=== PATIENT | male | born 1945 | race Caucasian/White ===

== ENCOUNTER → 2020-07-13 10:25 | Outpatient (CLI) | payer MEDICARE, SELFPAY ==
[2020-07-13 19:41] LABS: Add Manual Diff / Slide Review NO; Basophils Absolute Auto 0 /uL (0-100); Basophils Percent Auto 0.3 % (0-2); Eosinophils Absolute Auto 200 /uL (0-450); Eosinophils Percent Auto 3.6 % (2-4); Hematocrit 42.3 % (41-53); Hemoglobin 13.7 g/dL (13.5-17.5); Lymphocytes Absolute Auto 1200 /uL (1100-4500); Lymphocytes Percent Auto 25.6 % (25-40); Mean Corpuscular HGB Conc 32.5 % (30-36); Mean Corpuscular Hemoglobin 28.8 PG (26-34); Mean Corpuscular Volume 88.4 fL (80-100); Monocytes Absolute Auto 700 /uL (0-900); Monocytes Percent Auto 13.7 % (3-14); Neutrophils Absolute Auto 2800 /uL (1500-7000); Neutrophils Percent Auto 56.8 % (50-75); Platelet Count 265 X10^3/uL (150-400); Red Blood Cell Count 4.78 X10^6/uL (4.5-5.9); Red Cell Distribution Width 14.2 % (11.6-14.8); White Blood Cell Count 4.9 X10^3/uL (4.5-11.0)
[2020-07-13 19:45] LABS: HEMOLYSIS < 15 (0-50)
[2020-07-13 19:50] LABS: Alanine Aminotransferase 25 IU/L (<50); Albumin 3.9 g/dL (3.5-5.0); Albumin Globulin Ratio 1.5 (1.0-2.8); Alkaline Phosphatase 86 U/L (38-126); Aspartate Aminotransferase 36 IU/L (17-59); BUN Creatinine Ratio 15.5 (6-22); Bilirubin Total 0.7 mg/dL (0.2-1.3); Blood Urea Nitrogen 11 mg/dL (9-20); Calcium 9.4 mg/dL (8.4-10.2); Carbon Dioxide 28 mmol/L (22-32); Chloride 108 mmol/L (98-107); Cholesterol 166 mg/dL (140-199); Estimated Glomerular Filt Rate > 60.0 mL/min (>60); Globulin 2.6 g/dL (1.7-4.1); Glucose 110 mg/dL (80-110); HDL Cholesterol 48 mg/dL (40-60); LDL Cholesterol Calculated 103 mg/dL (<100); Potassium 4.4 mmol/L (3.4-5.1); Sodium 141 mmol/L (137-145); Total Protein 6.5 g/dL (6.3-8.2); Triglycerides 75 mg/dL (35-150)
[2020-07-15 04:03] LABS: Prostate Specific Antigen Scrn 4.98 ng/mL (0.1-4.0)
== END ==
PROVIDERS: Family Provider Internal Medicine; PCP Internal Medicine; Visit Provider Family Medicine
DX: E66.9 Obesity, unspecified (principal); Z12.5 Encounter for screening for malignant neoplasm of prostate; Z85.47 Personal history of malignant neoplasm of testis; I82.409 Acute embolism and thrombosis of unspecified deep veins of unspecified lower extremity; N52.9 Male erectile dysfunction, unspecified; R97.20 Elevated prostate specific antigen [PSA]
CPT/HCPCS: 80053; 80061; 85025; G0103

== ENCOUNTER → 2021-09-19 11:22 | Outpatient (CLI) | payer MEDICARE, SELFPAY ==
[2021-09-19 20:34] LABS: Alanine Aminotransferase 15 IU/L (<50); Albumin Globulin Ratio 1.6 (1.0-2.8); Alkaline Phosphatase 65 U/L (38-126); Aspartate Aminotransferase 24 IU/L (17-59); BUN Creatinine Ratio 15.6 (6-22); Bilirubin Total 0.9 mg/dL (0.2-1.3); Blood Urea Nitrogen 10 mg/dL (9-20); Calcium 8.7 mg/dL (8.4-10.2); Carbon Dioxide 29 mmol/L (22-32); Chloride 104 mmol/L (98-107); Estimated Glomerular Filt Rate > 60 mL/min (>60); Globulin 2.5 g/dL (1.7-4.1); Glucose 89 mg/dL (80-110); HEMOLYSIS < 15 (0-50); Potassium 4.7 mmol/L (3.4-5.1); Sodium 137 mmol/L (137-145); Total Protein 6.5 g/dL (6.3-8.2)
[2021-09-21 09:05] LABS: PSA Free % 16.9 % (.); PSA, Total 7.7 ng/mL (0.0-4.0)
== END ==
PROVIDERS: Family Provider Internal Medicine; PCP Family Medicine; Visit Provider Family Medicine
DX: I82.409 Acute embolism and thrombosis of unspecified deep veins of unspecified lower extremity (principal)
CPT/HCPCS: 80053; 84153; 84154

== ENCOUNTER → 2022-04-06 11:48 | Outpatient (CLI) | payer OTHER, SELFPAY ==
[2022-04-06 13:23] LABS: Add Manual Diff / Slide Review NO; Basophils Absolute Auto 0 /uL (0-100); Basophils Percent Auto 0.3 % (0-2); Eosinophils Absolute Auto 100 /uL (0-450); Eosinophils Percent Auto 1.9 % (2-4); Hematocrit 38.9 % (41-53); Hemoglobin 13.2 g/dL (13.5-17.5); Lymphocytes Absolute Auto 1300 /uL (1100-4500); Lymphocytes Percent Auto 23.6 % (25-40); Mean Corpuscular HGB Conc 33.9 % (30-36); Mean Corpuscular Hemoglobin 30.2 PG (26-34); Mean Corpuscular Volume 89.1 fL (80-100); Monocytes Absolute Auto 600 /uL (0-900); Monocytes Percent Auto 10.1 % (3-14); Neutrophils Absolute Auto 3500 /uL (1500-7000); Neutrophils Percent Auto 64.1 % (50-75); Platelet Count 260 X10^3/uL (150-400); Red Blood Cell Count 4.37 X10^6/uL (4.5-5.9); Red Cell Distribution Width 13.6 % (11.6-14.8); White Blood Cell Count 5.5 X10^3/uL (4.5-11.0)
[2022-04-06 13:44] LABS: Fibrinogen 252 mg/dL (211-428)
[2022-04-06 13:46] LABS: D Dimer 754 ng/ml (<500)
[2022-04-06 14:13] LABS: Testosterone 990 ng/dL (71.8-623)
[2022-04-08 13:34] LABS: Factor VIII Activity, Clotting 141 % (56-140); Protein C-Functional 103 % (73-180)
[2022-04-10 17:08] LABS: APTT 26.5 sec (.); Factor V Activity 93 % (.); Prothrombin Time 10.6 sec (.)
[2022-04-17 06:36] LABS: Percent Free Testosterone 1.44 % (1.50-4.20); Testosterone Total 694.6 ng/dL (264.0-916.0)
== END ==
PROVIDERS: Family Provider Internal Medicine; PCP Family Medicine; Referring Provider Urology; Visit Provider Urology
DX: I82.4Z2 Acute embolism and thrombosis of unspecified deep veins of left distal lower extremity (principal); N40.1 Benign prostatic hyperplasia with lower urinary tract symptoms; N13.8 Other obstructive and reflux uropathy; R97.20 Elevated prostate specific antigen [PSA]; N52.9 Male erectile dysfunction, unspecified; Z85.47 Personal history of malignant neoplasm of testis; Z90.79 Acquired absence of other genital organ(s); Z79.01 Long term (current) use of anticoagulants; Z79.890 Hormone replacement therapy
CPT/HCPCS: 36415; 51798; 81002; 84402; 84403; 85025; 85220; 85240; 85303; 85379; 85384; 85610; 85611; 85730; 99214

== ENCOUNTER → 2022-04-14 10:40 | Outpatient (CLI) | payer OTHER, SELFPAY ==
--- NOTE | 2022-04-14 10:41 | DI.MRI.S_ITS ---
PROCEDURE: MR PELVIC PROSTATE PROTOCOL INDICATIONS: Elevated PSA TECHNIQUE: Coronal HASTE, axial T1 FSE with fat saturation, 3-plane nonbreath-hold T2 FSE. After the administration of contrast, dynamic axial, delayed axial and coronal VIBE or 2-D FLASH with fat saturation through the pelvis. Optional diffusion weighted imaging and ADC may be performed. COMPARISON: None. FINDINGS: Image quality: Diffusion weighted images are degraded by metallic artifact. Prostate: Gland size is 5.6 x 9.1 x 7.0 cm; ellipsoid gland volume is 185 mL. Lesion 1: Location: Midline transition zone, base (06/29) Size: 3.9 x 2.8 cm T2 signal: Markedly T2 hypointense DWI: Degraded by metallic artifact ADC: Markedly hypointense Enhancement: Positive Extracapsular extension: No PI-RADS score: 5 Lesion 2: Location: Midline posterior left transition zone, midgland (07/08) Size: 1.4 x 1.0 cm T2 signal: Partially calcified nodule with hypointense signal DWI: Degraded by metallic artifact ADC: Markedly hypointense Enhancement: Positive Extracapsular extension: No PI-RADS score: 3 Lesion 3: Location: Left posterior transition zone, midgland (07/08) Size: 1.0 x 1.0 cm T2 signal: Partially calcified nodule with hypointense signal DWI: Degraded by metallic artifact ADC: Markedly hypointense Enhancement: Positive Extracapsular extension: No PI-RADS score: 3 Genitourinary system: Bladder wall thickness is normal. Distal ureters are non distended. Bowel and peritoneum: No pathologic free pelvic fluid. Inferior colon and small bowel loops are normal in caliber. Nodes and vessels: Enlarged right obturator chain node measuring 1.2 cm short axis (5/3). Enlarged left external iliac chain node measuring 1.2 cm short axis (5/11). Soft tissues: Left inguinal hernia containing fat. Bones: Marrow demonstrates normal overall signal, without lesions to suggest metastases. Bilateral hip arthroplasties. IMPRESSION: PI-RADS 3 and 5 lesions, as above. Enlarged pelvic chain lymph nodes by size criteria. Dictated by: Mil King M.D. on 04/14/2022 at 12:15 Approved by: Mil King M.D. on 04/14/2022 at 12:31
== END ==
PROVIDERS: Family Provider Internal Medicine; PCP Family Medicine; Referring Provider Urology; Visit Provider Urology
DX: R97.20 Elevated prostate specific antigen [PSA] (principal); N42.9 Disorder of prostate, unspecified; R59.0 Localized enlarged lymph nodes
CPT/HCPCS: 72197

== ENCOUNTER → 2022-05-03 14:00 | Outpatient (CLI) | payer OTHER, SELFPAY ==
[2022-05-03 19:10] LABS: Add Manual Diff / Slide Review NO; Basophils Absolute Auto 0 /uL (0-100); Basophils Percent Auto 0.4 % (0-2); Eosinophils Absolute Auto 100 /uL (0-450); Eosinophils Percent Auto 2.9 % (2-4); Hematocrit 39.7 % (41-53); Hemoglobin 13.5 g/dL (13.5-17.5); Lymphocytes Absolute Auto 1500 /uL (1100-4500); Lymphocytes Percent Auto 34.9 % (25-40); Mean Corpuscular Hemoglobin 30.1 PG (26-34); Mean Corpuscular Volume 88.7 fL (80-100); Monocytes Absolute Auto 500 /uL (0-900); Monocytes Percent Auto 11.8 % (3-14); Neutrophils Absolute Auto 2200 /uL (1500-7000); Platelet Count 258 X10^3/uL (150-400); Red Blood Cell Count 4.48 X10^6/uL (4.5-5.9); Red Cell Distribution Width 13.7 % (11.6-14.8); White Blood Cell Count 4.4 X10^3/uL (4.5-11.0)
[2022-05-03 19:19] LABS: HEMOLYSIS < 15 (0-50)
[2022-05-03 19:34] LABS: Alanine Aminotransferase 22 IU/L (<50); Albumin 3.8 g/dL (3.5-5.0); Albumin Globulin Ratio 1.4 (1.0-2.8); Alkaline Phosphatase 65 U/L (38-126); Aspartate Aminotransferase 27 IU/L (17-59); BUN Creatinine Ratio 16.9 (6-22); Bilirubin Total 0.7 mg/dL (0.2-1.3); Blood Urea Nitrogen 10 mg/dL (9-20); Calcium 8.9 mg/dL (8.4-10.2); Carbon Dioxide 31 mmol/L (22-32); Chloride 102 mmol/L (98-107); Estimated Glomerular Filt Rate > 60 mL/min (>60); Globulin 2.7 g/dL (1.7-4.1); Glucose 120 mg/dL (80-110); Potassium 4.2 mmol/L (3.4-5.1); Sodium 139 mmol/L (137-145); Total Protein 6.5 g/dL (6.3-8.2)
[2022-05-05 09:53] LABS: Prostate Specific Antigen Scrn 5.42 ng/mL (0.1-4.0)
[2022-05-15 10:07] LABS: Percent Free Testosterone 1.25 % (1.50-4.20); Testosterone Total 127.8 ng/dL (264.0-916.0)
== END ==
PROVIDERS: Family Provider Internal Medicine; PCP Family Medicine; Visit Provider Family Medicine
DX: R79.89 Other specified abnormal findings of blood chemistry (principal); N13.8 Other obstructive and reflux uropathy; N40.1 Benign prostatic hyperplasia with lower urinary tract symptoms; Z79.890 Hormone replacement therapy; Z85.47 Personal history of malignant neoplasm of testis; Z12.5 Encounter for screening for malignant neoplasm of prostate
CPT/HCPCS: 80053; 84402; 84403; 85025; G0103

== ENCOUNTER → 2022-07-28 10:43 | Outpatient (CLI) | payer OTHER, SELFPAY ==
--- NOTE | 2022-07-28 10:44 | DI.MRI.S_ITS ---
PROCEDURE: MR SHOULDER RT WO CON INDICATIONS: fall on shoulder 1 week ago, cannot lift arm TECHNIQUE: Noncontrast oblique coronal T2 fast spin echo with fat saturation, oblique sagittal T1 spin echo and T2 fast spin echo with fat saturation, axial T1 spin echo and T2 fast spin echo with fat saturation through the shoulder. COMPARISON: [facility] ([place]), CR, XR SHOULDER RT MIN 2V, 05/24/2022, 11:27. FINDINGS: Image quality: Excellent. Rotator cuff: There is full-thickness tearing of the supraspinatus tendon and the anterior portion of the infraspinatus tendon measuring approximately 2.4 cm at the distal insertion. There is proximal tendon retraction measuring up to 5.6 cm. Mild atrophy and grade 2 fatty infiltration of the supraspinatus and infraspinatus muscles. Mildly [id number] material is seen posterior to the humeral head that appears to be continuous with the retracted infraspinatus tendon and could represent osseous avulsion fragments. These are not well seen on T1-weighted images, likely due to internal edema. Intramuscular edema within the medial infraspinatus muscle is consistent with a superimposed strain. Mild teres minor tendinosis. Moderate tendinosis of the distal subscapularis tendon. A benign muscular lipoma is seen along the deep margin of the lateral belly of the deltoid muscle measuring 5.0 x 1.8 x 6.1 cm. Bones and bursae: Minimal osseous edema at the greater tuberosity. Chronic traction cystic changes are seen at the posterosuperior head humeral head as well as the greater and lesser tuberosities near the rotator cuff tendon insertions. The humeral head is high riding with narrowing of the acromiohumeral interval. High-grade cartilage loss is seen in the glenoid and medial humeral head with subchondral cystic changes and marginal osteophyte formation. Moderate to severe degenerative changes are seen at the acromioclavicular joint. A moderate subacromial/subdeltoid bursal effusion communicates with the glenohumeral joint space an with a large subcoracoid effusion. Fluid can be seen tracking medially from the superior subscapularis recess. Capsule and soft tissues: Diffuse labral degeneration and chronic degenerative tearing. The proximal biceps long head tendon is not seen, most likely due to complete tearing and distal retraction. Glenohumeral ligaments are grossly intact. IMPRESSION: 1. Full-thickness tearing of the supraspinatus tendon and the anterior portion of the infraspinatus tendon from their distal footprints measuring approximately 2.4 cm in anterior-posterior dimension with proximal tendon retraction measuring up to 5.6 cm. Mild atrophy and fatty infiltration of the supraspinatus and infraspinatus muscles. Intramuscular edema within the infraspinatus muscle is consistent with a superimposed low-grade strain. 2. Mildly edematous structures located posterior to the humeral head that appear to be continuous with the retracted infraspinatus tendon are suspicious for displaced osseous avulsion fragments. There is trace edema at the suspected donor site at the greater tuberosity. 3. Moderate subscapularis tendinosis and mild teres minor tendinosis. 4. Complete tearing distal retraction of the biceps long head tendon. 5. 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 Diffuse labral degeneration and chronic degenerative tearing. 6. Moderate to severe acromioclavicular joint osteoarthrosis. 7. Moderate subacromial/subdeltoid bursal fluid communicates with a large subcoracoid bursal effusion and with the glenohumeral joint space. Nonspecific fluid is noted tracking medially from the superior subscapularis recess. 8. Incidental benign intramuscular lipoma within the lateral belly of the deltoid muscle. Approved by: Collin Petty M.D. on 07/28/2022 at 11:56
== END ==
PROVIDERS: Family Provider Internal Medicine; PCP Family Medicine; Referring Provider Physician Assistant; Visit Provider Physician Assistant
DX: S46.011A Strain of muscle(s) and tendon(s) of the rotator cuff of right shoulder, initial encounter (principal); S46.111A Strain of muscle, fascia and tendon of long head of biceps, right arm, initial encounter; M94.211 Chondromalacia, right shoulder; M19.011 Primary osteoarthritis, right shoulder; D17.9 Benign lipomatous neoplasm, unspecified; M25.411 Effusion, right shoulder
CPT/HCPCS: 73221

== ENCOUNTER → 2023-01-22 15:03 | Outpatient (CLI) | payer OTHER, SELFPAY ==
--- NOTE | 2023-01-22 15:05 | DI.RAD.S_ITS ---
PROCEDURE: XR KNEE LT 3V INDICATIONS: Possible L TKR TECHNIQUE: 3 views of the knee were acquired. COMPARISON: [facility], CR, XR KNEE ARTHRITIC SERIES LT, 03/02/2021, 13:59. [facility]), CR, XR KNEE LT 3V, 08/17/2020, 10:30. FINDINGS: Bones: No fractures or dislocations. No suspicious bony lesions. Severe tricompartmental knee joint degeneration. Soft tissues: Small joint effusion. No suspicious soft tissue calcifications. IMPRESSION: 1. Severe osteoarthritis. 2. Small knee joint effusion. Dictated by: Chayito Bay M.D. on 01/22/2023 at 16:04 Approved by: Chayito Bay M.D. on 01/22/2023 at 16:06
== END ==
PROVIDERS: Family Provider Internal Medicine; PCP Family Medicine; Referring Provider Family Medicine; Visit Provider Family Medicine
DX: M25.462 Effusion, left knee (principal); M17.12 Unilateral primary osteoarthritis, left knee; M25.569 Pain in unspecified knee
CPT/HCPCS: 73562

== ENCOUNTER → 2023-05-01 10:02 | Outpatient (CLI) | payer OTHER, SELFPAY ==
--- NOTE | 2023-05-01 10:03 | DI.US.S_ITS ---
PROCEDURE: US PERIPH VENOUS LOW EXTREM LT INDICATIONS: SWELLING. H/O DVT ?DVT VS HESS'S CYST TECHNIQUE: Real-time imaging, as well as color and pulse Doppler interrogation, were performed of the lower extremity deep veins from the inguinal ligament to the popliteal fossa, with documentation of the visualized calf veins. COMPARISON: None. FINDINGS: The common femoral, femoral, popliteal, and the visualized calf veins are normally compressible, and free of intraluminal thrombus. Color and pulse Doppler demonstrate normal phasic intraluminal flow. There is normal augmentation response to distal compression maneuver. There is a 6.3 x 3.1 x 2.4 cm complex Hess's cyst. Soft tissue edema is noted in the left ankle. IMPRESSION: 1. No findings of lower extremity deep venous thrombosis. 2. A 6.3 x 3.1 x 2.4 cm complex Hess's cyst. Dictated by: Chayito Bay M.D. on 05/01/2023 at 11:53 Approved by: Chayito Bay M.D. on 05/01/2023 at 11:54
== END ==
PROVIDERS: Family Provider Internal Medicine; PCP Family Medicine; Referring Provider Family Medicine; Visit Provider Family Medicine
DX: M79.89 Other specified soft tissue disorders (principal); M71.22 Synovial cyst of popliteal space [Baker], left knee
CPT/HCPCS: 93971

== ENCOUNTER → 2023-08-02 13:23 | Outpatient (CLI) | payer OTHER, SELFPAY ==
[2023-08-02 19:15] LABS: Add Manual Diff / Slide Review NO; Basophils Absolute Auto 0 /uL (0-100); Basophils Percent Auto 0.6 % (0-2); Eosinophils Absolute Auto 100 /uL (0-450); Eosinophils Percent Auto 2.3 % (2-4); Hematocrit 38.7 % (41-53); Hemoglobin 13.2 g/dL (13.5-17.5); Lymphocytes Absolute Auto 1600 /uL (1100-4500); Lymphocytes Percent Auto 28.6 % (25-40); Mean Corpuscular HGB Conc 34.2 % (30-36); Mean Corpuscular Hemoglobin 30.1 PG (26-34); Mean Corpuscular Volume 88.1 fL (80-100); Monocytes Absolute Auto 500 /uL (0-900); Monocytes Percent Auto 9.5 % (3-14); Neutrophils Absolute Auto 3300 /uL (1500-7000); Platelet Count 303 X10^3/uL (150-400); Red Blood Cell Count 4.39 X10^6/uL (4.5-5.9); Red Cell Distribution Width 14.2 % (11.6-14.8); White Blood Cell Count 5.6 X10^3/uL (4.5-11.0)
[2023-08-02 19:19] LABS: BUN Creatinine Ratio 18.6 (6-22); Blood Urea Nitrogen 13 mg/dL (9-20); Carbon Dioxide 28 mmol/L (22-32); Chloride 106 mmol/L (98-107); Estimated Glomerular Filt Rate > 60 mL/min (>60); Glucose 124 mg/dL (80-110); HEMOLYSIS < 15 (0-50); Potassium 4.8 mmol/L (3.4-5.1); Sodium 136 mmol/L (137-145)
[2023-08-07 19:10] LABS: ANA Screen, IFA Negative (.)
== END ==
PROVIDERS: Family Provider Internal Medicine; PCP Family Medicine; Visit Provider Family Medicine
DX: K11.7 Disturbances of salivary secretion (principal); H04.123 Dry eye syndrome of bilateral lacrimal glands; D64.9 Anemia, unspecified; R79.89 Other specified abnormal findings of blood chemistry; Z86.718 Personal history of other venous thrombosis and embolism
CPT/HCPCS: 80048; 85025; 86038

== ENCOUNTER → 2023-08-10 09:05 | Outpatient (CLI) | payer OTHER, SELFPAY ==
[2023-08-10 19:38] LABS: Testosterone 220 ng/dL (71.8-623)
== END ==
PROVIDERS: Family Provider Internal Medicine; PCP Family Medicine; Visit Provider Urology
DX: R68.82 Decreased libido (principal); R97.20 Elevated prostate specific antigen [PSA]
CPT/HCPCS: 84153; 84154; 84403

== ENCOUNTER → 2023-08-20 13:18 | Outpatient (CLI) | payer OTHER, SELFPAY ==
[2023-08-20 19:25] LABS: Reticulocyte Count, Percent 0.5 % (0.9-2.6)
[2023-08-20 19:33] LABS: HEMOLYSIS < 15 (0-50); Iron 140 ug/dL (49-181)
[2023-08-20 19:50] LABS: Percent Iron Saturation 43 % (20-50); Total Iron Binding Capacity 329 ug/dL (261-462); Transferrin 252 mg/dL (206-381)
[2023-08-20 20:33] LABS: Vitamin B12 334 pg/mL (239-931)
== END ==
PROVIDERS: Family Provider Internal Medicine; PCP Family Medicine; Visit Provider Family Medicine
DX: D64.9 Anemia, unspecified (principal)
CPT/HCPCS: 82607; 83540; 83550; 85045

== ENCOUNTER → 2023-09-17 09:03 | Outpatient (CLI) | payer OTHER, MEDICARE, SELFPAY ==
[2023-09-17 21:10] LABS: Testosterone 234 ng/dL (71.8-623)
== END ==
PROVIDERS: Family Provider Internal Medicine; PCP Family Medicine; Referring Provider Urology; Visit Provider Urology
DX: R68.82 Decreased libido (principal)
CPT/HCPCS: 84403

== ENCOUNTER → 2023-11-23 10:01 | Outpatient (CLI) | payer OTHER, SELFPAY ==
[2023-11-23 18:54] LABS: Testosterone 162 ng/dL (71.8-623)
[2023-11-24 09:12] LABS: PSA Free % 17.7 % (.)
== END ==
PROVIDERS: Family Provider Internal Medicine; PCP Family Medicine; Visit Provider Urology
DX: R68.82 Decreased libido (principal); N52.9 Male erectile dysfunction, unspecified; R97.20 Elevated prostate specific antigen [PSA]; N13.8 Other obstructive and reflux uropathy; N40.1 Benign prostatic hyperplasia with lower urinary tract symptoms
CPT/HCPCS: 84153; 84154; 84403

== ENCOUNTER → 2024-02-05 13:04 | Outpatient (CLI) | payer OTHER, SELFPAY ==
[2024-02-05 19:35] LABS: BUN Creatinine Ratio 21.1 (6-22); Blood Urea Nitrogen 15 mg/dL (9-20); Calcium 9.2 mg/dL (8.4-10.2); Carbon Dioxide 29 mmol/L (22-32); Chloride 104 mmol/L (98-107); Estimated Glomerular Filt Rate > 60 mL/min (>60); Glucose 129 mg/dL (80-110); HEMOLYSIS < 15 (0-50); Potassium 4.4 mmol/L (3.4-5.1); Sodium 136 mmol/L (137-145)
== END ==
PROVIDERS: Family Provider Internal Medicine; PCP Family Medicine; Visit Provider Family Medicine
DX: Z51.81 Encounter for therapeutic drug level monitoring (principal)
CPT/HCPCS: 80048